=== PATIENT | female | born 1975 | race Caucasian/White ===

== ENCOUNTER 2016-09-13 06:09 | Emergency (ER) | payer OTHER ==
[~2016-09-13] VITALS: Ht 154.9 cm; Wt 80.0 kg
[2016-09-13 06:13] VITALS: Ht 154.9 cm; Wt 80.0 kg
[2016-09-13] MEDS ORDERED: ACETAMINOPHEN 325 MG TAB PO ONE (08:00)
--- NOTE | 2016-09-13 08:38 | RADRPT ---
PROCEDURE: XR Chest. CLINICAL INDICATION: Chest pain TECHNIQUE: Chest AP portable. COMPARISON: No comparison available. FINDINGS: The mediastinal structures are unremarkable. The heart is normal in size and configuration. The pu lmonary vascularity is normal. The lung nath are unremarkable. No consolidation is identified. The pleural spaces are unremarkable. The axial skeleton is unremarkable. IMPRESSION: No active intrathoracic disease. RPTAT: HGDB .Vijay Shirley MD, MD Date Time Electronically viewed and signed by .Vijay Shirley MD, on 09/13/2016 08:38 .B/
--- NOTE | 2016-09-13 08:48 | RADRPT ---
PROCEDURE: XR Cervical Spine. CLINICAL INDICATION: Neck pain TECHNIQUE: Three views of the cervical spine were performed. C6-7 level not identified on the late ral view. COMPARISON: None. FINDINGS: C6-7 level is not identified on the lateral view. The cervical vertebral bodies are otherwise normal in mineralization, architecture and alignment. No fracture or osseous lesion is identified. No subluxation is demonstrated. The disk spaces are unr emarkable. The uncinate joints are unremarkable. The facet joints are unremarkable. No soft tissu e abnormality is identified. IMPRESSION: C6-7 level is not identified on the lateral view. Otherwise unremarkable examination. Recommendation: Repeat lateral film/CT cervical spine RPTAT: HGDB .Vijay Shirley MD, Date Time Electronically viewed and signed by .Vijay Shirley MD, on 09/13/2016 08:47 .B/
--- NOTE | 2016-09-13 08:49 | RADRPT ---
PROCEDURE: CR left shoulder CLINICAL INDICATION: Shoulder pain TECHNIQUE: 3 views performed COMPARISON: No comparison available. FINDINGS: There is normal mineralization, architecture and alignment.No fracture or osseous lesion is identifi ed.The glenohumeral and acromioclavicular joints are unremarkable. The soft tissues are unremarkable . IMPRESSION: Unremarkable examination. RPTAT: HGDB .Vijay Shirley MD, MD Date Time Electronically viewed and signed by .Vijay Shirley MD, MD on 09/13/2016 08:49 .B/
--- NOTE | 2016-09-13 08:50 | RADRPT ---
PROCEDURE: XR left wrist. CLINICAL INDICATION: Wrist pain TECHNIQUE: Three views are available for review. COMPARISON: No prior studies are available for comparison. FINDINGS: The osseous structures are normal in mineralization, architecture and alignment. No fracture or oss eous lesion is identified. The joints are unremarkable. No erosions are identified.The soft tissues are unremarkable. IMPRESSION: Unremarkable examination. RPTAT: HGDB .Vijay Shirley MD, MD Date Time Electronically viewed and signed by .Vijay Shirley MD, on 09/13/2016 08:50 .B/
--- NOTE | 2016-09-13 08:51 | RADRPT ---
PROCEDURE: XR left elbow. CLINICAL INDICATION: Elbow pain TECHNIQUE: Three views of the elbow are available for review. COMPARISON: No prior studies are available for comparison. FINDINGS: There is normal mineralization, architecture and alignment. No fracture or osseous lesion is identi fied. The joints are unremarkable. The soft tissues are unremarkable. IMPRESSION: Unremarkable examination RPTAT: HGDB .Vijay Shirley MD, MD Date Time Electronically viewed and signed by .Vijay Shirley MD, on 09/13/2016 08:51 .B/
--- NOTE | 2016-09-13 08:51 | RADRPT ---
PROCEDURE: XR left hand. CLINICAL INDICATION: Hand pain TECHNIQUE: Three views are available for review. COMPARISON: No prior studies are available for comparison. FINDINGS: The osseous structures are normal in mineralization, architecture and alignment. No fracture or oss eous lesion is identified. The joints are unremarkable. No erosions are identified. The soft tissue s are unremarkable. IMPRESSION: Unremarkable examination. RPTAT: HGDB .Vijay Shirley MD, MD Date Time Electronically viewed and signed by .Vijay Shirley MD, on 09/13/2016 08:50 .B/
--- NOTE | 2016-09-13 09:47 | RADRPT ---
PROCEDURE: XR Cervical Spine. CLINICAL INDICATION: Neck pain TECHNIQUE: Lateral views of the cervical spine . COMPARISON: Cervical spine 09/13/2016 FINDINGS: The C6-7 level is not well identified and is unremarkable. The cervical vertebral bodies are normal in mineralization, architecture and alignment. No fracture or osseous lesion is identified. No subluxation is demonstrated. The disk spaces are unremarkable. The uncinate joints are unremarkable. The facet joints are unremarkable. No soft tissue abnormal ity is identified. IMPRESSION: Unremarkable cervical spine. RPTAT: HGDB .Vijay Shirley MD, MD Date Time Electronically viewed and signed by .Vijay Shirley MD, on 09/13/2016 09:46 .B/
[2016-09-13] MEDS ORDERED: ACET500C5 PO (09:59)
[2016-09-13] MEDS ORDERED: CYCL-319 PO (10:05)
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
== END 2016-09-13 10:53 | disposition home or self-care (01) ==
LOC: FTE 06:09
DX: S19.9XXA Unspecified injury of neck, initial encounter (principal); S69.92XA Unspecified injury of left wrist, hand and finger(s), initial encounter; S49.92XA Unspecified injury of left shoulder and upper arm, initial encounter; S59.902A Unspecified injury of left elbow, initial encounter; R07.9 Chest pain, unspecified; V43.52XA Car driver injured in collision with other type car in traffic accident, initial encounter
CPT/HCPCS: 71010; 72020; 72040; 73030; 73080; 73110; 73130; 93005; Z7610

== ENCOUNTER 2017-07-24 20:16 | Emergency (ER) | END 2017-07-24 23:40 | disposition home or self-care (01) ==